=== PATIENT | female | born 1975 | race Caucasian/White ===

== ENCOUNTER 2021-01-16 10:55 | Emergency (ER) | payer OTHER ==
[2021-01-16] MEDS ORDERED: SODIUM CHLORIDE 0.9% 1,000 ML IV STA (11:38)
[2021-01-16] MEDS ORDERED: MECLIZINE 12.5 MG TAB PO STA (11:39)
[2021-01-16] MEDS ORDERED: KETOROLAC 15 MG/ML 1 ML VIAL IVP STA (11:39)
[2021-01-16 12:05] LABS: Basophils % (A) 0 %; Eosinophils # (A) 0.3 k/uL (0-0.7); Eosinophils % (A) 3 %; HGB 13.8 gm/dL (11.4-16.0); Lymphocytes # (A) 1.9 k/uL (1.0-4.8); Lymphocytes % (A) 21 %; MCH 27.7 pg (25.0-35.0); MCV 86.6 fL (80.0-100.0); Mean Platelet Volume 7.2; Monocytes # (A) 0.4 k/uL (0-1.0); Monocytes % (A) 4 %; Neutrophils # (A) 6.7 k/uL (1.3-7.7); Neutrophils % (A) 71 %; Platelet Count 248 k/uL (150-450); RBC 4.96 m/uL (3.80-5.40); RDW 12.9 % (11.5-15.5); WBC 9.5 k/uL (3.8-10.6)
[2021-01-16 12:17] LABS: ALT 16 U/L (4-34); AST 21 U/L (14-36); African American GFR (CKD) >90 (>60 ml/min/1.73 sqM); Albumin 4.2 g/dL (3.5-5.0); Alkaline Phosphatase 66 U/L (38-126); Anion Gap 8 mmol/L; Blood Urea Nitrogen 12 mg/dL (7-17); Calcium 9.5 mg/dL (8.4-10.2); Carbon Dioxide 28 mmol/L (22-30); Chloride 100 mmol/L (98-107); Glucose 90 mg/dL (74-99); Non-African American GFR(CKD) >90 (>60 ml/min/1.73 sqM); Potassium 4.2 mmol/L (3.5-5.1); Sodium 136 mmol/L (137-145); Total Bilirubin 0.3 mg/dL (0.2-1.3); Total Protein 6.6 g/dL (6.3-8.2)
--- NOTE | 2021-01-16 12:37 | XR ---
EXAMINATION TYPE: XR knee complete LT DATE OF EXAM: 01/16/2021 COMPARISON: None HISTORY: 45-year-old female with knee pain TECHNIQUE: 3 views FINDINGS: Moderate knee joint effusion. Extensor mechanism appears intact. Degenerative spurring in the patello femoral compartment and minimal in the medial lateral compartments. No acute fracture, subluxation, d islocation. Mild anterior soft tissue swelling. IMPRESSION: 1. No acute osseous abnormality seen. There is tricompartmental osteoarthritic spurring, greatest in the patellofemoral compartment. 2. However, there is a moderate knee joint effusion. MRI can be performed if concern for internal trina angement.
--- NOTE | 2021-01-16 12:38 | XR ---
EXAMINATION TYPE: XR chest 2V DATE OF EXAM: 01/16/2021 COMPARISON: 10/29/2019 HISTORY: 45 year-old female shortness of breath TECHNIQUE: AP and lateral views FINDINGS: Large patient body habitus casting hazy densities overlying the hemithoraces. The cardiomediastinal s ilhouette, aorta, and pulmonary vasculature are within normal limits. No consolidation or pleural eff usion. IMPRESSION: No acute cardiopulmonary process.
[2021-01-16] MEDS ORDERED: DIAZEPAM 5 MG/ML 2 ML INJ IVP STA (13:00)
[2021-01-16] MEDS ORDERED: ONDANSETRON 4 MG/2 ML VIAL IVP STA (13:01)
--- NOTE | 2021-01-16 13:09 | ED ---
General Adult HPI - General Chief complaint: Dizziness Stated complaint: Dizziness,L Knee Pain Time Seen by Provider: 01/16/21 11:20 Source: patient Mode of arrival: ambulatory Limitations: no limitations - History of Present Illness Initial comments: Patient is a 45-year-old female who presents to the emergency room for multiple complaints. Patient has a history of asthma, GERD, migraines, arthritis, bilateral knee bursitis, vertigo who presents to the emergency room for a chief complaint of dizziness and knee pain. Patient reports that she is mostly concerned about her left knee pain. States it has been ongoing for the past several days. Patient states it is more swollen than normal. Patient has a history of bursitis and thinks it is probably her bursitis but is supposed to be moving in 7 days and wanted it evaluated. Patient can ambulate on the knee. Patient reports she is also dizzy x 5 days. Patient has a history of vertigo. Patient states her vertigo is better when she is up and moving but worsens when she tries to lie down. States the room is spinning. States this morning she had no symptoms of vertigo but was up and walking around. Now that she has been in the ER and it is starting.Patient has no other complaints at this time including shortness of breath, chest pain, abdominal pain, nausea or vomiting, headache, or visual changes. - Related Data Home Medications Medication Instructions Recorded Confirmed Albuterol Nebulizer(Dose Unknown) 1 applicate INHALATION DIRECTED 08/20/14 08/20/14 PRN Amoxic-Pot Clav 875-125Mg 1 each PO Q12HR 08/20/14 08/20/14 [Augmentin Xr 875-125] Fluticasone Propionate [Flonase] 1 spray EA NOSTRIL DIRECTED PRN 08/20/14 08/20/14 Hyoscyamine Sulfate [Levsin] 0.125 mg PO Q3-4H PRN 08/20/14 08/20/14 Ipratropium/Albuterol Sulfate 2 puff INHALATION DIRECTED 08/20/14 08/20/14 [Combivent Respimat Inhaler] Montelukast Sodium [Singulair] 10 mg PO DAILY PRN 08/20/14 08/20/14 Phentermine HCl [Adipex-P] 18.75 mg PO QAM 08/20/14 08/20/14 Topiramate [Topamax] 25 mg PO QAM 08/20/14 08/20/14 predniSONE 10 mg PO DIRECTED 08/20/14 08/20/14 Albuterol Nebulized [Ventolin 2.5 mg INHALATION RT-Q8H PRN 10/28/19 10/28/19 Nebulized] Aspirin/Acetaminophen/Caffeine 1 tab PO Q8H PRN 10/28/19 10/28/19 [Excedrin Migraine Caplet] Menthol [Biofreeze] 1 applic TOPICAL DAILY PRN 10/28/19 10/28/19 Omeprazole Magnesium [PriLOSEC OTC] 20 mg PO HS 10/28/19 10/28/19 Previous Rx's Medication Instructions Recorded Ibuprofen [Motrin] 600 mg PO Q6HR PRN #30 tab 08/24/14 Albuterol Inhaler (Mhu) [Ventolin 2 puff INHALATION RT-QID PRN #1 11/02/19 Hfa Inhaler (u)] inhaler Azithromycin [Zithromax] 500 mg PO Q24H #3 tab 11/02/19 Fluticasone Propionate 110 Mcg 2 puff INHALATION RT-BID #1 inhaler 11/02/19 [Flovent 110 Mcg Inhaler (u)] predniSONE See Taper PO DIRECTED #30 tab 11/02/19 Meclizine [Antivert] 25 mg PO TID PRN #20 tab 01/16/21 Allergies Allergy/AdvReac Type Severity Reaction Status Date / Time sulfamethoxazole Allergy Rash/Hives Verified 01/16/21 11:10 [From Bactrim] sumatriptan [From Imitrex] Allergy Anaphylaxis Verified 01/13/20 14:48 trimethoprim [From Bactrim] Allergy Rash/Hives Verified 01/16/21 11:10 tuberculin, purified protein Allergy Rash/Hives Verified 01/13/20 14:48 deriva TB skin test AdvReac Swelling Uncoded 01/13/20 14:48 Review of Systems ROS Statement: Those systems with pertinent positive or pertinent negative responses have been documented in the HPI. ROS Other: All systems not noted in ROS Statement are negative. Past Medical History Past Medical History: Asthma, GERD/Reflux, Osteoarthritis (OA), Pneumonia Additional Past Medical History / Comment(s): Bronchitis, migraines, arthritis in multiple joints, R hip "goes out", lumbar scoliosis, bursitis bilateral knees, IBS, R ear [place], endometriosis. History of Any Multi-Drug Resistant Organisms: None Reported Past Surgical History: Cholecystectomy, Uterine Ablation Additional Past Surgical History / Comment(s): D&C, colonoscopy Past Anesthesia/Blood Transfusion Reactions: No Reported Reaction Past Psychological History: Anxiety, Depression, No Psychological Hx Reported Smoking Status: Never smoker Past Alcohol Use History: None Reported, Occasional Past Drug Use History: None Reported - Past Family History Mother Additional Family Medical History / Comment(s): Heart disease, cancerous cysts in her breast. Sister(s) Additional Family Medical History / Comment(s): 2 sisters with ovarian cancer. General Exam Limitations: no limitations General appearance: alert, in no apparent distress Head exam: Present: atraumatic, normocephalic, normal inspection Eye exam: Present: normal appearance, PERRL, EOMI. Absent: scleral icterus, conjunctival injection, periorbital swelling ENT exam: Present: normal exam, mucous membranes moist Neck exam: Present: normal inspection, full ROM. Absent: tenderness, meningismu s, lymphadenopathy Respiratory exam: Present: normal lung sounds bilaterally. Absent: respiratory distress, wheezes, rales, rhonchi, stridor Cardiovascular Exam: Present: regular rate, normal rhythm, normal heart sounds. Absent: systolic murmur, diastolic murmur, rubs, gallop, clicks GI/Abdominal exam: Present: soft, normal bowel sounds. Absent: distended, tenderness, guarding, rebound, rigid Extremities exam: Present: normal capillary refill (cap refill less than 2 seconds, DP pulse 2+ left lower extremity.), joint swelling (Mild edema noted on the anterior left knee.), other (sensation intact. No erythema or increased warmth noted of the left knee.). Absent: full ROM (Patient has 90 flexion of the left knee, full extension.), tenderness, pedal edema, calf tenderness Neurological exam: Present: alert, oriented X3 Course Vital Signs 01/16/21 01/16/21 11:06 13:46 Temperature 98.5 F 98.6 F Pulse Rate 95 80 Respiratory 18 12 Rate Blood Pressure 118/86 117/75 O2 Sat by Pulse 96 96 Oximetry EKG Findings - EKG Comments: EKG Findings:: Normal sinus rhythm, ventricular rate 86, CA interval 150, QTC 426 Medical Decision Making - Medical Decision Making Vitals are stable. Patient presents for 2 complaints. One is knee pain. Patient has bursitis of the left knee chronically. This worsened over the past few days. Neurovascular status intact. Left knee x-ray shows no acute osseous abnormality. There is try compartment osteoarthritic spurring. There is a moderate knee joint effusion as well. She will need to follow-up with orthopedics. Layo wrap applied. More pertinently patient presented for dizziness. States it was mild at first. We initiated laboratory evaluation and fluids which were unremarkable. Patient was given meclizine. On reevaluation her dizziness had worsened and sitting up worsened her dizziness. Therefore a CT was obtained which showed no acute process. Patient was given Valium and reevaluated. At that point she felt even worse. Given persistent vertiginous symptoms I did strongly recommend admission to the hospital for neurology consultation and likely an MRI. After a lengthy discussion patient with like to leave AGAINST MEDICAL ADVICE. Patient is aware of the risks of this and that we cannot rule out other causes of dizziness aside from vertigo. Patient states it is just not a good time for her to have to stay in the hospital. Patient is alert and oriented, able to make medical decisions and is at bedside agreeable to leaving AGAINST MEDICAL ADVICE. Patient is aware she needs to return for any worsening symptoms. We will prescribe her Antivert and have her follow up with orthopedics given her knee pain. - Lab Data Result diagrams: 01/16/21 11:55 01/16/21 11:55 Lab Results 01/16/21 01/16/21 01/16/21 Range/Units 11:55 11:55 11:55 WBC 9.5 (3.8-10.6) k/uL RBC 4.96 (3.80-5.40) m/uL Hgb 13.8 (11.4-16.0) gm/dL Hct 43.0 (34.0-46.0) % MCV 86.6 (80.0-100.0) fL MCH 27.7 (25.0-35.0) pg MCHC 32.0 (31.0-37.0) g/dL RDW 12.9 (11.5-15.5) % Plt Count 248 (150-450) k/uL MPV 7.2 Neutrophils % 71 % Lymphocytes % 21 % Monocytes % 4 % Eosinophils % 3 % Basophils % 0 % Neutrophils # 6.7 (1.3-7.7) k/uL Lymphocytes # 1.9 (1.0-4.8) k/uL Monocytes # 0.4 (0-1.0) k/uL Eosinophils # 0.3 (0-0.7) k/uL Basophils # 0.0 (0-0.2) k/uL Sodium 136 L (137-145) mmol/L Potassium 4.2 (3.5-5.1) mmol/L Chloride 100 (98-107) mmol/L Carbon Dioxide 28 (22-30) mmol/L Anion Gap 8 mmol/L BUN 12 (7-17) mg/dL Creatinine 0.71 (0.52-1.04) mg/dL Est GFR (CKD-EPI)AfAm >90 (>60 ml/min/1.73 sqM) Est GFR (CKD-EPI)NonAf >90 (>60 ml/min/1.73 sqM) Glucose 90 (74-99) mg/dL Calcium 9.5 (8.4-10.2) mg/dL Total Bilirubin 0.3 (0.2-1.3) mg/dL AST 21 (14-36) U/L ALT 16 (4-34) U/L Alkaline Phosphatase 66 (38-126) U/L Troponin I <0.012 (0.000-0.034) ng/mL Total Protein 6.6 (6.3-8.2) g/dL Albumin 4.2 (3.5-5.0) g/dL Disposition Clinical Impression: Dizziness, Knee pain, left Disposition: Left Against Medical Advice Instructions (If sedation given, give patient instructions): Dizziness (ED) Additional Instructions: Please take Motrin and Tylenol for pain. Please take Antivert for dizziness. Please follow-up with orthopedics for your knee pain and primary care for your dizziness as soon as possible. Return to the emergency room for any worsening symptoms. Prescriptions: Meclizine [Antivert] 25 mg PO TID PRN #20 tab PRN Reason: dizzy Is patient prescribed a controlled substance at d/c from ED?: No Referrals: Nati Capellan MD [Primary Care Provider] - 1-2 days Jeremiah Madera DO [Doctor of Osteopathic Medicine] - 1-2 days Time of Disposition: 14:59
[2021-01-16 13:52] VITALS: BP 117/75; PULSE 80; RESP 12; TEMP 98.6
--- NOTE | 2021-01-16 14:23 | CT ---
EXAMINATION TYPE: CT brain wo con DATE OF EXAM: 01/16/2021 COMPARISON: None HISTORY: dizziness CT DLP: 1072.4 mGycm Automated exposure control for dose reduction was used. Ventricles and sulci appear normal. There is no mass effect nor midline shift. There is no sign of in tracranial hemorrhage. The calvarium is intact. There is no evidence of cerebral edema. Skull base is intact. IMPRESSION: Negative unenhanced head CT scan.
== END 2021-01-16 15:09 | disposition left against medical advice (07) ==
LOC: EC 10:55
DX: R42 Dizziness and giddiness (principal); M25.562 Pain in left knee; J45.909 Unspecified asthma, uncomplicated; K21.9 Gastro-esophageal reflux disease without esophagitis; Z79.899 Other long term (current) drug therapy; Z88.2 Allergy status to sulfonamides; Z88.1 Allergy status to other antibiotic agents; Z88.7 Allergy status to serum and vaccine
CPT/HCPCS: 36415; 93005; 80053; 84484; 85025; 73562; 71046; 70450; 99285; 96374; 96375; 96361; J3360; J2405; J1885

== ENCOUNTER 2021-04-07 19:24 | Emergency (ER) | payer OTHER ==
--- NOTE | 2021-04-07 21:50 | XR ---
EXAMINATION: XR chest 1V portable DATE AND TIME: 04/07/2021 9:32 PM CLINICAL INDICATION: PHH; Suspected COVID-19 pneumonia TECHNIQUE: AP upright portable COMPARISON: 01/16/2021 FINDINGS: The hemidiaphragms are elevated, consistent with relatively low lung inflation at the moment of x-ray exposure. This causes crowding of the pulmonary vasculature. Given this factor, lungs appear to be c lear as seen. The pleural spaces are negative. The cardiac silhouette is not enlarged. The remainder of the mediastinal silhouette is unremarkable. The skeletal structures and soft tissues are negative for acute findings. IMPRESSION: No definite acute radiographic process.
[2021-04-07] MEDS ORDERED: ACETAMINOPHEN TAB 500 MG TAB PO STA (22:06)
--- NOTE | 2021-04-07 22:08 | ED ---
SOB HPI - General Chief Complaint: Shortness of Breath Stated Complaint: SOB Time Seen by Provider: 04/07/21 21:04 Source: patient Mode of arrival: ambulatory - History of Present Illness Initial Comments: 45-year-old female presenting to emergency Department with a chief complaint of covid-19ert. Patient reports she tested +2 days ago at the [facility] and has been having symptoms since. She reports exertional dyspnea along with chest pain. This seems to be exacerbated when taking deep breaths. Patient reports generalized fatigue and nausea but denies any vomiting. She reports a productive cough with white sputum production. She also reports rhinorrhea or o talgia and occasional sore throat after coughing fits. Denies any loss of taste or smell. Reports fevers and chills at home. - Related Data Home Medications Medication Instructions Recorded Confirmed Omeprazole Magnesium [PriLOSEC OTC] 20 mg PO BID PRN 10/28/19 04/07/21 Acetaminophen [Tylenol] 500 mg PO Q4-6H PRN 04/07/21 04/07/21 Albuterol Inhaler [Ventolin Hfa 2 puff INHALATION RT-QID PRN 04/07/21 04/07/21 Inhaler] Ascorbic Acid [Vitamin C] 1,000 mg PO DAILY 04/07/21 04/07/21 Azithromycin [Zithromax Z-pack (6 See Taper PO DIRECTED 04/07/21 04/07/21 tabs)] Cholecalciferol [Vitamin D3 (25 25 mcg PO DAILY 04/07/21 04/07/21 Mcg = 1000 Iu)] Multivitamins, Thera [Multivitamin 1 tab PO DAILY 04/07/21 04/07/21 (formulary)] Venlafaxine HCl ER [Effexor Xr] 150 mg PO DAILY 04/07/21 04/07/21 Zinc 50 mg PO DAILY 04/07/21 04/07/21 predniSONE [Deltasone] 20 mg PO DAILY 04/07/21 04/07/21 Allergies Allergy/AdvReac Type Severity Reaction Status Date / Time sulfamethoxazole Allergy Rash/Hives Verified 04/07/21 22:27 [From Bactrim] sumatriptan [From Imitrex] Allergy Anaphylaxis Verified 04/07/21 22:27 trimethoprim [From Bactrim] Allergy Rash/Hives Verified 04/07/21 22:27 tuberculin, purified protein Allergy Rash/Hives Verified 04/07/21 22:27 deriva TB skin test AdvReac Swelling Uncoded 04/07/21 20:21 Review of Systems ROS Statement: Those systems with pertinent positive or pertinent negative responses have been documented in the HPI. ROS Other: All systems not noted in ROS Statement are negative. Past Medical History Past Medical History: Asthma, GERD/Reflux, Osteoarthritis (OA), Pneumonia Additional Past Medical History / Comment(s): Bronchitis, migraines, arthritis in multiple joints, R hip "goes out", lumbar scoliosis, bursitis bilateral knees, IBS, R ear [place], endometriosis. History of Any Multi-Drug Resistant Organisms: None Reported Past Surgical History: Cholecystectomy, Uterine Ablation Additional Past Surgical History / Comment(s): D&C, colonoscopy Past Anesthesia/Blood Transfusion Reactions: No Reported Reaction Past Psychological History: Anxiety, Depression, No Psychological Hx Reported Smoking Status: Never smoker Past Alcohol Use History: None Reported, Occasional Past Drug Use History: None Reported - Past Family History Father Family Medical History: Dementia Mother Family Medical History: AFIB, Cancer Additional Family Medical History / Comment(s): Heart disease, cancerous cysts in her breast. Sister(s) Family Medical History: Cancer Additional Family Medical History / Comment(s): 2 sisters with ovarian cancer. General Exam Limitations: no limitations General appearance: alert, in no apparent distress, obese Head exam: Present: atraumatic, normocephalic, normal inspection Eye exam: Present: normal appearance Pupils: Present: normal accommodation ENT exam: Present: normal exam, normal oropharynx, mucous membranes moist Neck exam: Present: normal inspection, full ROM. Absent: tenderness, lymphadenopathy Respiratory exam: Present: normal lung sounds bilaterally. Absent: respiratory distress, wheezes, rales, rhonchi, stridor, chest wall tenderness, accessory muscle use Cardiovascular Exam: Present: regular rate, normal rhythm, normal heart sounds. Absent: systolic murmur GI/Abdominal exam: Present: soft. Absent: distended, tenderness, guarding Extremities exam: Present: normal inspection, full ROM. Absent: tenderness Back exam: Present: normal inspection, full ROM. Absent: tenderness Neurological exam: Present: alert, oriented X3 Psychiatric exam: Present: normal affect, normal mood Skin exam: Present: warm, dry, intact, normal color Course Vital Signs 04/07/21 04/07/21 20:17 21:56 Temperature 101.9 F H 101.5 F H Pulse Rate 101 H 102 H Respiratory 22 18 Rate Blood Pressure 113/83 120/76 O2 Sat by Pulse 91 L 97 Oximetry Medical Decision Making - Medical Decision Making 45-year-old female presents to emergency Department with a chief complaint of Covid. She does not appear to be any respiratory distress. She is able to complete sentences without any difficulties. Lungs are clear to auscultation. Patient was febrile and tachycardic on arrival. She was given antipyretics. Chest x-ray is unremarkable. Laboratory work reveals mild leukocytosis. Negative d-dimer. Coags within normal limits. Patient given a monoclonal antibody. Patient was observed in the emergency department without any postinfusion reactions. Return parameters were thoroughly discussed the patien t's ascending agreeable. Covid protocol discussed. Case discussed physician. - Lab Data Result diagrams: 04/07/21 21:48 04/07/21 21:48 Lab Results 04/07/21 04/07/21 04/07/21 Range/Units 21:48 21:48 21:48 WBC 12.5 H (3.8-10.6) k/uL RBC 4.56 (3.80-5.40) m/uL Hgb 14.0 (11.4-16.0) gm/dL Hct 40.5 (34.0-46.0) % MCV 88.7 (80.0-100.0) fL MCH 30.6 (25.0-35.0) pg MCHC 34.5 (31.0-37.0) g/dL RDW 14.2 (11.5-15.5) % Plt Count 193 (150-450) k/uL MPV 7.5 Neutrophils % 90 % Lymphocytes % 6 % Monocytes % 3 % Eosinophils % 0 % Basophils % 0 % Neutrophils # 11.2 H (1.3-7.7) k/uL Lymphocytes # 0.7 L (1.0-4.8) k/uL Monocytes # 0.4 (0-1.0) k/uL Eosinophils # 0.0 (0-0.7) k/uL Basophils # 0.0 (0-0.2) k/uL PT 10.0 (9.0-12.0) sec INR 0.9 (<1.2) APTT 23.3 (22.0-30.0) sec D-Dimer 0.32 (<0.60) mg/L FEU Sodium 134 L (137-145) mmol/L Potassium 4.5 (3.5-5.1) mmol/L Chloride 100 (98-107) mmol/L Carbon Dioxide 26 (22-30) mmol/L Anion Gap 8 mmol/L BUN 13 (7-17) mg/dL Creatinine 0.83 (0.52-1.04) mg/dL Est GFR (CKD-EPI)AfAm >90 (>60 ml/min/1.73 sqM) Est GFR (CKD-EPI)NonAf 85 (>60 ml/min/1.73 sqM) Glucose 134 H (74-99) mg/dL Calcium 8.8 (8.4-10.2) mg/dL Magnesium 2.1 (1.6-2.3) mg/dL Total Bilirubin 0.1 L (0.2-1.3) mg/dL AST 31 (14-36) U/L ALT 28 (4-34) U/L Alkaline Phosphatase 65 (38-126) U/L Lactate Dehydrogenase 598 (313-618) U/L Total Protein 6.7 (6.3-8.2) g/dL Albumin 4.2 (3.5-5.0) g/dL - EKG Data EKG Comments: Sinus tachycardia Ventricular rate 102, VT 156, QRS 84, QTC 448. Disposition Clinical Impression: COVID-19 Disposition: HOME SELF-CARE Condition: Stable Instructions (If sedation given, give patient instructions): Coronavirus Disease 2019 (COVID-19) Additional Instructions: Please return to the Emergency Department if symptoms worsen or any other concerns. Is patient prescribed a controlled substance at d/c from ED?: No Referrals: Nati Capellan MD [Primary Care Provider] - 1-2 days Time of Disposition: 23:31
[2021-04-07 22:21] LABS: Basophils % (A) 0 %; Eosinophils % (A) 0 %; HCT 40.5 % (34.0-46.0); Lymphocytes # (A) 0.7 k/uL (1.0-4.8); Lymphocytes % (A) 6 %; MCH 30.6 pg (25.0-35.0); MCHC 34.5 g/dL (31.0-37.0); MCV 88.7 fL (80.0-100.0); Mean Platelet Volume 7.5; Monocytes # (A) 0.4 k/uL (0-1.0); Monocytes % (A) 3 %; Neutrophils # (A) 11.2 k/uL (1.3-7.7); Neutrophils % (A) 90 %; Platelet Count 193 k/uL (150-450); RBC 4.56 m/uL (3.80-5.40); RDW 14.2 % (11.5-15.5); WBC 12.5 k/uL (3.8-10.6)
[2021-04-07 22:29] LABS: ALT 28 U/L (4-34); AST 31 U/L (14-36); African American GFR (CKD) >90 (>60 ml/min/1.73 sqM); Albumin 4.2 g/dL (3.5-5.0); Alkaline Phosphatase 65 U/L (38-126); Anion Gap 8 mmol/L; Blood Urea Nitrogen 13 mg/dL (7-17); Calcium 8.8 mg/dL (8.4-10.2); Carbon Dioxide 26 mmol/L (22-30); Chloride 100 mmol/L (98-107); Glucose 134 mg/dL (74-99); LDH 598 U/L (313-618); Magnesium 2.1 mg/dL (1.6-2.3); Non-African American GFR(CKD) 85 (>60 ml/min/1.73 sqM); Potassium 4.5 mmol/L (3.5-5.1); Sodium 134 mmol/L (137-145); Total Bilirubin 0.1 mg/dL (0.2-1.3); Total Protein 6.7 g/dL (6.3-8.2)
[2021-04-07 22:34] LABS: INR 0.9 (<1.2); Partial Thromboplastin Time 23.3 sec (22.0-30.0)
[2021-04-07] MEDS ORDERED: SODIUM CHLORIDE 0.9% 50 ML IVPB ONE (23:15)
[2021-04-07] MEDS ORDERED: CASIRIVIMAB (REGN10933) (EUA) 600 MG, IMDEVIMAB (REGN10987) (EUA) 600 MG in SODIUM CHLO... IVPB ONE (23:30)
[2021-04-08 01:27] VITALS: BP 106/79; PULSE 96; RESP 16; TEMP 97.9
== END 2021-04-08 01:25 | disposition home or self-care (01) ==
LOC: EC 19:24
DX: U07.1 COVID-19 (principal); J45.909 Unspecified asthma, uncomplicated; K21.9 Gastro-esophageal reflux disease without esophagitis; M19.90 Unspecified osteoarthritis, unspecified site; K58.9 Irritable bowel syndrome, unspecified; F41.9 Anxiety disorder, unspecified; F32.9 Major depressive disorder, single episode, unspecified; Z79.51 Long term (current) use of inhaled steroids; Z79.52 Long term (current) use of systemic steroids; Z79.899 Other long term (current) drug therapy
CPT/HCPCS: 36415; 93005; 85379; 80053; 83615; 83735; 85025; 85610; 85730; 84145; 71045; 99285; 96365; Q0243